=== PATIENT | male | born 1940 | race Caucasian/White ===

== ENCOUNTER 2016-06-23 14:59 | Emergency (ER) | payer MEDICARE, BC ==
[2016-06-23] MEDS ORDERED: SODIUM CHLORIDE 0.9% 2,000 ML ONE (17:27)
[2016-06-23] MEDS ORDERED: CEFTRIAXONE 1 GM VIAL ONE (19:39)
[2016-06-23] MEDS ORDERED: SODIUM CHLORIDE 0.9% 100 ML IV ONE (19:39)
== END 2016-06-23 21:36 | disposition home or self-care (01) ==
LOC: ER 14:59
DX: R53.1 Weakness (principal); I12.9 Hypertensive chronic kidney disease with stage 1 through stage 4 chronic kidney disease, or unspecified chronic kidney disease; N18.9 Chronic kidney disease, unspecified; Z87.891 Personal history of nicotine dependence; R94.4 Abnormal results of kidney function studies
CPT/HCPCS: 36415; 71020; 80053; 81001; 83605; 85025; 87040; 87804; 93005; 96361; 96365; 99285; J0696; J7050